=== PATIENT | male | born 1985 | race Caucasian/White ===

== ENCOUNTER 2022-08-01 10:04 | Emergency (ER) | payer OTHER, SELFPAY ==
[2022-08-01 10:15] VITALS: BP 151/53; PULSE 84; RESP 16; TEMP 36.9; O2SAT 95; BMI 32.9
--- NOTE | 2022-08-01 10:32 | ED_ITS ---
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 He has had history infection the past, he has also had cerumen impaction the past and feels similar to this. No fevers, COVID symptoms, viral type symptoms symptoms Related Data Previous Rx's Medication Instructions Recorded cephalexin 500 mg capsule 500 mg PO TID 7 days #21 caps 08/01/22 Allergies Allergy/AdvReac Type Severity Reaction Status Date / Time No Known Drug Allergies Allergy Verified 08/01/22 10:21 Review of Systems Narrative: Has history of recurrent ear infections, history of cerumen impaction, no significant headache no sore throat, no cough, no respiratory issues no skin rashes no nuchal rigidity Exam Narrative: Exam Narrative: Objective: Patient is no apparent distress Mild redness to the throat, no exudate Bilateral cerumen impaction both ears, I am able to see part of the rim of the right otitis right ear drum it appears slightly reddish. Neck is supple Const: Vital Signs, click to edit/add: Vital Signs - 24 hr 08/01/22 10:15 Temperature 98.4 F Pulse Rate [Right Pulse Oximeter] 84 Respiratory Rate 16 Blood Pressure [Ri ght Upper Arm] 151/53 H Pulse Oximetry 95 Oxygen Delivery Me thod Room Air Course Vital Signs Vital signs: Initial Vital Signs Temperature 98.4 F 08/01/22 10:15 Temperature Source Temporal Artery Scan 08/01/22 10:15 Pulse Rate 84 08/01/22 10:15 Respiratory Rate 16 08/01/22 10:15 Blood Pressure 151/53 H 08/01/22 10:15 Blood Pressure Mean 85 08/01/22 10:15 Blood Pressure Position Sitting 08/01/22 10:15 Pulse Oximetry 95 08/01/22 10:15 Oxygen Delivery Method 08/01/22 10:15 Vital Signs Temperature 98.4 F 08/01/22 10:15 Pulse Rate 84 08/01/22 10:15 Respiratory Rate 16 08/01/22 10:15 Blood Pressure 151/53 H 08/01/22 10:15 Pulse Oximetry 95 08/01/22 10:15 Oxygen Delivery Method 08/01/22 10:15 Temperature 98.4 F 08/01/22 10:15 Pulse Rate 84 08/01/22 10:15 Respiratory Rate 16 08/01/22 10:15 Blood Pressure 151/53 H 08/01/22 10:15 Pulse Oximetry 95 08/01/22 10:15 Oxygen Delivery Method 08/01/22 10:15 Medical Decision Making MDM Narrative Medical decision making narrative: Patient's history of ear infections as well as cerumen impaction. We discussed treatment options for the cerumen and he elected to try ear irrigation. Will do this bilaterally. Will treat him with Keflex 500 t.i.d. x7 days, Tylenol Advil as needed. May also use some Debrox daily in both ears as directed to review his remove any residual wax. Recheck with primary care as needed, return to ED problems or concerns. Discharge Plan Discharge Clinical Impression: Otitis media, Bilateral impacted cerumen Patient Disposition: Home, Self-Care Condition: Stable Additional Instructions: Antibiotic, may use some Debrox ear drops [id number] as directed for the next week to 10 days to get rid of any remaining wax. Tylenol or Advil as needed, recheck with primary care in the next 2-3 days not improving changes sooner concerns Activity Level: No Restrictions Discharge Diet: Regular Prescriptions: New cephalexin 500 mg capsule 500 mg PO TID 7 Days Qty: 21 0RF Follow Up/Referrals: Provider,Not a Local [Primary Care Provider] - Stand Alone Forms: [facility] Info Instructions
--- NOTE | 2022-08-01 11:00 | ED.NURSE ---
Irrigated both ears with 200cc of sterile water and hydrogen paroxide. Small chuncks and brown drainage came out of both ears. patient started to get dizzy towards the end of the treatment. Patient requested that we stop. notified.
--- NOTE | 2022-08-01 11:10 | ED.NURSE ---
Patient discharged home. Prescription for cephlex sent to [facility]. pleased with irrigation results but recommends debrox for rest of wax.
== END 2022-08-01 11:12 | disposition home or self-care (01) ==
LOC: ED 11:05
PROVIDERS: Emergency Provider Family Medicine
DX: H66.91 Otitis media, unspecified, right ear (principal); H61.23 Impacted cerumen, bilateral
CPT/HCPCS: 69209; 99282; 99283

== ENCOUNTER 2023-09-09 22:49 | Emergency (ER) | payer OTHER, SELFPAY ==
[2023-09-09 22:51] VITALS: BP 144/79; PULSE 97; RESP 16; TEMP 36.8; O2SAT 97; BMI 31.6
[2023-09-09 22:55] VITALS: PULSE 89
--- NOTE | 2023-09-09 23:03 | ED_ITS ---
HPI - Extremity Injury (Upper) General Time Seen by Provider: 23:03 Date Seen: 09/09/23 Chief Complaint: Extremity Pain/Injury, Upper Stated Complaint: Fall Time Seen by Provider: 09/09/23 23:02 Source: patient and RN notes reviewed Mode of arrival: ambulatory Limitations: no limitations History of Present Illness HPI narrative: Damir is a very pleasant 37-year-old gentleman left-hand dominant who comes to the emergency room for evaluation of a fall onto the right shoulder. Damir states that he was going to kick off his shoes and ended up slipping and fell onto his right shoulder. Immediately he states he felt like he was going to throw up any felt and heard a pop. Initially was unable to move his arm and thought it may be dislocated but here in the emergency room he states he is now able to move it but it feels as if it is popping. There is no numbness or tingling in the arm. He denies any neck pain, head trauma or loss of consciousness. He notes that the discomfort starts in his right shoulder and does radiate onto the right anterior chest. He has not taken anything for pain at this time. He presents with his who is very loving and supportive. Movement increases his discomfort. Related Data Home Medications Medication Instructions Recorded Confirmed No Known Home Medications 08/16/23 08/16/23 Allergies Allergy/AdvReac Type Severity Reaction Status Date / Time No Known Drug Allergies Allergy Verified 08/16/23 19:32 Review of Systems Status of ROS: Reports: 10 or more systems reviewed and unremarkable except as noted in History and below Exam Narrative: Exam Narrative: Damir is alert and oriented. He is interactive and nontoxic in appearance. Eyes are clear face is symmetrical. Palpation of cervical spine is without tenderness. No midline cervical tenderness. No respiratory distress. Palpation over scapula without discomfort. There is tenderness noted over the humeral head especially on the anterior lateral surface. No discomfort over the right pectoral area. There is slight discomfort with palpation over the right clavicle. Distally sensation and motor is intact. Biceps musculature appears to be intact. Const: Vital Signs, click to edit/add: Vital Signs - 24 hr 09/09/23 22:51 09/09/23 23:22 Temperature 98.2 F 98.2 F Pulse Rate [Pulse Oximeter] 97 Respiratory Rate 16 Blood Pressure [Le ft Upper Arm] 144/79 H Pulse Oximetry 97 Oxygen Delivery Me thod Room Air Documenting provider has reviewed patient's vital signs: yes Course Course ED Course: At this time will have Radiology do x-rays as differential diagnosis does include humeral head fracture, rotator cuff injury, AC joint separation. Will also give 800 mg of oral ibuprofen. Vital Signs Vital signs: Initial Vital Signs Temperature 98.2 F 09/09/23 22:51 Temperature Source Temporal Artery Scan 09/09/23 22:51 Pulse Rate 97 09/09/23 22:51 Respiratory Rate 16 09/09/23 22:51 Blood Pressure 144/79 H 09/09/23 22:51 Blood Pressure Mean 100 09/09/23 22:51 Blood Pressure Position Sitting 09/09/23 22:51 Pulse Oximetry 97 09/09/23 22:51 Oxygen Delivery Method Room Air 09/09/23 22:51 Vital Signs Temperature 98.2 F 09/09/23 22:51 Pulse Rate 97 09/09/23 22:51 Respiratory Rate 16 09/09/23 22:51 Blood Pressure 144/79 H 09/09/23 22:51 Pulse Oximetry 97 09/09/23 22:51 Oxygen Delivery Method Room Air 09/09/23 22:51 Temperature 98.2 F 09/09/23 23:22 Pulse Rate 97 09/09/23 22:51 Respiratory Rate 16 09/09/23 22:51 Blood Pressure 144/79 H 09/09/23 22:51 Pulse Oximetry 97 09/09/23 22:51 Oxygen Delivery Method Room Air 09/09/23 22:51 Medications Administered Medications: Discontinued Medications Generic Name Dose Route Start Last Admin Trade Name Ana Rosa PRN Reason Stop Dose Admin Ibuprofen 800 mg 09/09/23 23:08 09/09/23 23:22 Ibuprofen 400 Mg Tablet PO 09/09/23 23:09 800 mg ONCE ONE Administration MDM - Extremity Injury (Upper) MDM Narrative Medical decision making narrative: 1. Right Shoulder [id number] does not appear to show any fractures. Patient does describe feeling a pop inability to move and now can move his arm. I do w onder if he had a subluxation with that spontaneously reduced. I am concerned that he has rotator cuff and or cartilage injury. At this time patient was given ibuprofen 800 mg p.o.. He will need to continue this as needed every 8 hours for discomfort as well as its anti-inflammatory properties. Recommend sling at this time for the next 48 hours. However, I have demonstrated [id number] exercises to him he will need to do these a few times a day. I would have him follow-up with his primary MD or Orthopedics for recheck. For ongoing issues he may need MRI or physical therapy. Icing may also be appropriate. 2. Disposition-home at this time. Return for worsening symptoms and as needed. Medical Records Attestation: I reviewed the patient's medical records. Imaging Data Right shoulder x-ray: Attestation: I have reviewed the pertinent imaging results. My impression: No obvious fractures by my read Radiologist's impression: NDICATION: Fall with limited ROM RIGHT SHOULDER No fracture, dislocation, or destructive lesion of bone is seen. No arthritic changes or soft tissue abnormalities are identified. IMPRESSION: Negative right shoulder radiographs. Discharge Plan Discharge Clinical Impression: Injury of right shoulder Qualifiers: Encounter type: initial encounter Qualified Code(s): S49.91XA - Unspecified injury of right shoulder and upper arm, initial encounter Patient Disposition: Home, Self-Care Condition: Unchanged Additional Instructions: Sling at this time. Remove arm from sling a few times daily and do [id number] exercises. I recommend following up with Orthopedics for a recheck. For ongoing symptoms you may need MRI and/or physical therapy. Alternate ibuprofen and Tylenol every 4 hours as needed for discomfort. You may also use ice to this area. Prescriptions: No Action No Known Home Medications Follow Up/Referrals: Provider,Not a Local [Primary Care Provider] - Stand Alone Forms: [facility] Info Instructions
--- NOTE | 2023-09-09 23:08 | CRLHL7_ITS ---
For Patients: As a result of the Cures Act, medical imaging exams and procedure reports are released immediately into your electronic medical record. You may view this report before your referring provider. If you have questions, please contact your health care provider. INDICATION: Fall with limited ROM RIGHT SHOULDER No fracture, dislocation, or destructive lesion of bone is seen. No arthritic changes or soft tissue abnormalities are identified. IMPRESSION: Negative right shoulder radiographs. YELENA ESTEVEZ MD [facility] Dictated by: Nic Estevez MD @ 09/10/2023 00:11:25 (Electronically Signed)
[2023-09-09 23:22] VITALS: TEMP 36.8
[2023-09-09] MEDS: IBUPROFEN 400 MG TABLET 800 MG PO (23:22)
[2023-09-10 00:48] VITALS: BP 132/74; PULSE 89; RESP 16; TEMP 36.8; O2SAT 97
[2023-09-10 00:49] VITALS: BP 132/74; PULSE 89; RESP 16; TEMP 36.8
== END 2023-09-10 00:49 | disposition home or self-care (01) ==
PROVIDERS: Emergency Provider Family Medicine
DX: S49.91XA Unspecified injury of right shoulder and upper arm, initial encounter (principal); W18.30XA Fall on same level, unspecified, initial encounter
CPT/HCPCS: 73030; 99283; A9270